=== PATIENT | female | born 1960 | race Caucasian/White ===

== ENCOUNTER 2023-11-02 15:58 | Emergency (ER) | payer OTHER, SELFPAY ==
[2023-11-02 16:10] VITALS: PULSE 71; RESP 18; TEMP 37; O2SAT 99; BMI 25.0
--- NOTE | 2023-11-02 16:48 | ED_ITS ---
HPI - Syncope General Date Seen: 11/02/23 Chief Complaint: Dizziness/Vertigo Stated Complaint: Feeling faint Time Seen by Provider: 11/02/23 16:09 Source: patient Mode of arrival: ambulatory Limitations: no limitations History of Present Illness HPI narrative: A 63-year-old female with no known active medical problems but admits to not seen a doctor in quite a while presenting to the emergency department for near syncopal episode. She states she was at work all day and doing well. She finished work and drove home at about 14:30 she had this feeling of faintness like she was about a passed out while driving her car. She pulled over the side of road and it passed. She still was not feeling completely back to normal so 1 to her brother's house which was only a couple blocks away and she laid down. Symptoms seemed to resolve at that point. She also states for the past several months she has been having intermittent episodes of dizziness. She states the dizziness seems to get worse with movement. Symptoms resolved when she lays down. She is currently asymptomatic. She describes the dizziness episodes as feeling like she is spinning. States this caused her to fall onto a cactus was she was in [place] in September. Has had issues with motion sickness as come and gone throughout the years. Denies fevers, chills, chest pain, shortness of breath, weakness, numbness, headache, vision changes, abdominal pain, diarrhea. She does states she has a primary care appointment scheduled for this upcoming Tuesday. Related Data Previous Rx's Medication Instructions Recorded meclizine 25 mg tablet 25 mg PO QID #20 tabs 11/02/23 Allergies Allergy/AdvReac Type Severity Reaction Status Date / Time No Known Drug Allergies Allergy Verified 11/02/23 16:09 Review of Systems Status of ROS: Reports: 10 or more systems reviewed and unremarkable except as noted in History and below [facility] Social History Smoking Status: Former smoker What tobacco products do you use: cigarettes Do you use any of these nicotine containing products: None Second hand tobacco smoke exposure: No How often do you have a drink containing alcohol: monthly or less How many standard drinks containing alcohol do you have on a typical day: 1 or 2 How often do you have six or more drinks on one occasion: Never AUDIT-C Alcohol total score: 1 Non-prescribed substance use: denies use service: No Exam Narrative: Exam Narrative: Const: Well-nourished, Well-developed, in no distress Eyes: PERRL, no conjunctival injection, and symmetrical lids HENT: Atraumatic external nose and ears. Moist mucous membranes. Neck: Symmetric, trachea midline, No thyromegaly. CVS: RRR, No murmurs or gallops. Peripheral pulses 2+ and equal in all extremities RESP: Unlabored respiratory effort. Clear to auscultation bilaterally. GI: Nontender/Nondistended, No rebound or guarding. MSK:Extremities w/o deformity, Normal Active ROM Skin: Warm, Dry. No rashes or lesions. Neuro: Normal Muscle tone, No focal neurological deficits. Psych: Awake, Alert, & Oriented x3. Appropriate mood and affect. Const: Vital Signs, click to edit/add: Vital Signs - 24 hr 11/02/23 16:10 11/02/23 19:07 Temperature 98.6 F Pulse Rate [Pulse Oximeter] 71 Pulse Rate [orthos tatic lying] 66 Pulse Rate [orthos tatic sitting] 75 Pulse Rate [orthos tatic standing] 71 Respiratory Rate 18 Blood Pressure [or thostatic lying] 135/75 Blood Pressure [or thostatic sitting] 139/80 Blood Pressure [or thostatic standing ] 135/84 Pulse Oximetry 99 Oxygen Delivery Me thod Room Air Course Vital Signs Vital signs: Initial Vital Signs Temperature 98.6 F 11/02/23 16:10 Temperature Source Temporal Artery Scan 11/02/23 16:10 Pulse Rate 71 11/02/23 16:10 Pulse Rhythm Regular 11/02/23 16:10 Respiratory Rate 18 11/02/23 16:10 Blood Pressure Position Supine 11/02/23 16:10 Pulse Oximetry 99 11/02/23 16:10 Oxygen Delivery Method Room Air 11/02/23 16:10 Vital Signs Temperature 98.6 F 11/02/23 16:10 Pulse Rate 71 11/02/23 16:10 Respiratory Rate 18 11/02/23 16:10 Pulse Oximetry 99 11/02/23 16:10 Oxygen Delivery Method Room Air 11/02/23 16:10 Temperature 98.6 F 11/02/23 16:10 Pulse Rate 66 11/02/23 19:07 Respiratory Rate 18 11/02/23 16:10 Blood Pressure 135/75 11/02/23 19:07 Pulse Oximetry 99 11/02/23 16:10 Oxygen Delivery Method Room Air 11/02/23 16:10 MDM - Syncope MDM Narrative Medical decision making narrative: Patient is a 63-year-old female presenting for it sounds like a near syncopal episode. Has not had is year with syncope before and states she was not under any stress at the time it occurred. Her previous episodes she is describing some more like vertigo. As there intermittently related to movement they seem very unlikely related to a stroke. Do not believe head imaging is necessary. I do not think further workup of the intermittent vertigo is necessary brother will workup for near syncope. Will do a BMP, CBC, magnesium, urinalysis, troponin, EKG. Will also do orthostatic blood pressures. Orthostatic blood pressures were within normal limits. Her lab work all returned showing no concerning findings. Repeat troponin showed no concerning findings EKG showed no concerning findings. We do not see signs of an arrhythmia that may have caused her episode of near syncope. Do not believe imaging will help with the diagnosis at this time. She has been asymptomatic since she has got your other than the occasional dizziness she has been having issues with for several months now. I offered her meclizine which she does not want to take right now but will take a prescription and will think about starting it. I informed her to keep her current follow-up appointment with her PCP on Tuesday. She is agreeable to this plan Lab Data Labs: Lab Results 11/02/23 11/02/23 Range/Units 16:47 17:55 WBC 6.63 (4.50-11.00) K/uL RBC 4.46 (4.00-5.20) m/uL Hgb 12.9 (12.0-16.0) gm/dL Hct 39.8 (33.0-51.0) % MCV 89 (80-100) fL MCH 29 (26-34) pg MCHC 32 (32-36) gm/dL RDW Coeff of Nirmala 13.4 (11.5-15.5) % Plt Count 204 (140-440) K/uL Neut % (Auto) 68.0 (42.0-72.0) % Lymph % (Auto) 21.9 (20-44) % [place] % (Auto) 7.4 (0.0-11.0) % Eos % (Auto) 2.0 (0.0-7.0) % Baso % (Auto) 0.5 (0.0-3.0) % Neut # (Auto) 4.52 (1.7-7.0) K/uL Lymph # (Auto) 1.45 (0.90-2.90) K/uL [place] # (Auto) 0.50 (0.00-0.90) K/UL Eos # (Auto) 0.13 (0.00-0.50) K/uL Baso # (Auto) 0.03 (0.00-0.30) K/uL Abs Immat Gran (auto) 0.01 (0.00-0.30) K/uL Imm/Tot Granulo (auto) 0.2 % Sodium 136 (135-149) mmol/L Potassium 4.1 (3.6-5.1) mmol/L Chloride 105 (96-114) mmol/L Carbon Dioxide 26 (20-32) mmol/L Anion Gap 5 L (7-15) mEq/L BUN 22 (7-30) mg/dL Creatinine 0.6 (0.5-1.5) mg/dL Estimated Creat Clear 53.16 Estimated GFR 102 ml/min Glucose 90 (60-115) mg/dL Calcium 9.3 (8.4-10.6) mg/dL Magnesium 2.0 (1.5-2.6) mg/dL POC Troponin I 0.00 L (0.01-0.04) ng/ml ECG Data Attestation: I personally reviewed and interpreted this ECG as follows: Prior ECG tracings: not available for review Interpretation: Normal sinus rhythm with a rate of 70 beats per minute, normal intervals, normal axis, no ST abnormalities. She does have some flat T-waves in the lateral leads but did not have any comparison. Discharge Plan Discharge Clinical Impression: Near syncope Patient Disposition: Home, Self-Care Condition: Stable Instructions: Near Syncope (ED) Additional Instructions: Make sure to keep your appointment with your primary care provider on Tuesday. Return to emergency department for new or worsening symptoms. If the dizziness seems to persist you can try using the prescribed meclizine. Prescriptions: New meclizine 25 mg tablet 25 mg PO QID Qty: 20 0RF Follow Up/Referrals: Tamika Schroeder DO [Primary Care Provider] - Stand Alone Forms: [facility] Info Instructions
[2023-11-02 18:09] LABS: Basophils Absolute Auto 0.03 K/uL (0.00-0.30); Basophils Percent Auto 0.5 % (0.0-3.0); Eosinophils Absolute Auto 0.13 K/uL (0.00-0.50); Hematocrit 39.8 % (33.0-51.0); Hemoglobin* 12.9 gm/dL (12.0-16.0); Immature Granulocytes Abs Auto 0.01 K/uL (0.00-0.30); Immature Granulocytes Pct Auto 0.2 %; Lymphocytes Absolute Auto 1.45 K/uL (0.90-2.90); Lymphocytes Percent Auto 21.9 % (20-44); Mean Corpuscular HGB Conc 32 gm/dL (32-36); Mean Corpuscular Hemoglobin 29 pg (26-34); Mean Corpuscular Volume 89 fL (80-100); Monocytes Percent Auto 7.4 % (0.0-11.0); Neutrophils Absolute Auto 4.52 K/uL (1.7-7.0); Platelet Count* 204 K/uL (140-440); RDW Coefficient of Variation % 13.4 % (11.5-15.5); Red Blood Count 4.46 m/uL (4.00-5.20); White Blood Count* 6.63 K/uL (4.50-11.00)
[2023-11-02 18:11] LABS: Slide Review Reflex No
[2023-11-02 18:19] LABS: Chloride* 105 mmol/L (96-114); Potassium* 4.1 mmol/L (3.6-5.1); Sodium* 136 mmol/L (135-149)
[2023-11-02 18:22] LABS: Anion Gap 5 mEq/L (7-15); Blood Urea Nitrogen* 22 mg/dL (7-30); Carbon Dioxide* 26 mmol/L (20-32); Creatinine* 0.6 mg/dL (0.5-1.5); Est. Creatinine Clearance* 53.16; Estimated Glomerular Filt Rate 102 ml/min
[2023-11-02 18:23] LABS: Calcium* 9.3 mg/dL (8.4-10.6); Glucose* 90 mg/dL (60-115)
[2023-11-02 19:07] VITALS: BP 135/75; BP 135/84; BP 139/80; PULSE 66; PULSE 71; PULSE 75
[2023-11-02 19:16] LABS: Appearance Urine Clear (Clear); Bilirubin Urine Negative (Negative); Blood Urine Negative (Negative); Color Urine Yellow (Yellow); Glucose Urine Negative (Negative); Ketones Urine Negative (Negative); Leukocyte Esterase Urine Negative (Negative); Nitrite Urine Negative (Negative); Protein Urine Negative (Negative); Urobilinogen Urine 0.2 (0.2-1.0)
[2023-11-02 19:53] LABS: Troponin, Point-of-Care* 0.01 ng/ml (0.01-0.04)
[2023-11-02 19:56] LABS: RBC Urine 0-2 (0-2); WBC Urine 0-2 (0-5)
== END 2023-11-02 20:03 | disposition home or self-care (01) ==
PROVIDERS: Emergency Provider Student in an Organized Health Care Education/Training Program; PCP Family Medicine
DX: R55 Syncope and collapse (principal)
CPT/HCPCS: 36415; 80048; 81001; 83735; 84484; 85025; 93005; 99283; 99284

== ENCOUNTER 2023-11-07 09:24 | Emergency (ER) | payer OTHER, SELFPAY ==
[2023-11-07 09:31] VITALS: BP 148/93; PULSE 111; RESP 18; TEMP 36.6; O2SAT 100; BMI 24.6
--- NOTE | 2023-11-07 10:24 | ED_ITS ---
HPI - Arrhythmia/Palpitations General Time Seen by Provider: 10:24 Date Seen: 11/07/23 Chief Complaint: Arrhythmia/Palpitations Stated Complaint: heart problems Time Seen by Provider: 11/07/23 10:24 Source: patient and RN notes reviewed Mode of arrival: ambulatory Limitations: no limitations History of Present Illness HPI narrative: Delia is a very pleasant 63-year-old female with recent history of near syncope and chronic intermittent dizziness for about 5 years who comes to the emergency room after an episode of rapid and strong heartbeat at home. Patient was noted to be following up with her primary clinic today and seeing Dr. Ortega but had a 10 minute episode of rapid heart rate that was pounding her chest. It was not associated with syncope or chest pain or shortness of breath but clearly very scary. She return to the emergency room for this reason. At this time her heart rate is normal and she has had resolution of her symptoms when I see her. Delia describes worries regarding an aneurysm or stroke as she states that she has also had intermittent lightheadedness for about 5 years. She notes that it seems to be better when she is working or concentrating on something. It does happen when she stands up. It does not appear to be vertigo but rather more of a lightheadedness. She states that she was climbing in the mountains in [place] 2 months ago and actually became lightheaded and she stumbled into a cactus. She denies chest pain or shortness of breath with this. She has not had DVT or PE in the past and has no calf tenderness or lower extremity edema. Patient denies fever chills or recent illness. She does undergo manager managed care for her neck and states she feels better after that. She did have manager managed care last week and did have what I believe is a high velocity correction. However, she did not have worsening dizziness after that, loss of vision or headache. Related Data Previous Rx's Medication Instructions Recorded meclizine 25 mg tablet 25 mg PO QID #20 tabs 11/02/23 Allergies Allergy/AdvReac Type Severity Reaction Status Date / Time No Known Drug Allergies Allergy Verified 11/02/23 16:09 Review of Systems Status of ROS: Reports: 10 or more systems reviewed and unremarkable except as noted in History and below PFSH PFSH Social History Smoking Status: Former smoker What tobacco products do you use: cigarettes Smoking quit date/years: >15 years ago Do you use any of these nicotine containing products: None Second hand tobacco smoke exposure: No How often do you have a drink containing alcohol: monthly or less How many standard drinks containing alcohol do you have on a typical day: 1 or 2 How often do you have six or more drinks on one occasion: Never AUDIT-C Alcohol total score: 1 Non-prescribed substance use: denies use service: No Exam Narrative: Exam Narrative: Alert and oriented. Very pleasant woman mentating normally in no acute distress. EOM is full. Pupils are equal round reactive. TMs bilaterally without erythema. No retraction. Face symmetrical with eyebrow raise smile normal. Tongue is midline. Palate rises symmetrically. Moving all extremities. Heart with regular rate and rhythm. Appears that heart rate initially 111 that is now in the 80s with my exam. Lungs are clear bilaterally. Lower extremities without edema. Homans sign negative. Moving all extremities. Const: Vital Signs, click to edit/add: Vital Signs - 24 hr 11/07/23 09:31 11/07/23 10:52 11/07/23 12:00 Temperature 97.8 F Pulse Rate [Right Pulse Oximeter] 111 H 71 Respiratory Rate 18 16 Blood Pressure [Ri ght Upper Arm] 148/93 H 137/75 Blood Pressure [or thostatic lying Ri ght Arm] 131/81 Blood Pressure [or thostatic sitting Right Arm] 138/82 Blood Pressure [or thostatic standing Right Arm] 132/81 Pulse Oximetry 100 Oxygen Delivery Me thod Room Air Documenting provider has reviewed patient's vital signs: yes Course Course ED Course: Differential diagnosis includes but is not limited to cardiac arrhythmia, orthostatic hypotension, anxiety, inner ear dysfunction. At this time Delia presents now with normal heart rate status post approximately 10 minutes of ongoing rapid and strong heartbeat in her chest. She did not pass out. She reports near syncopal episode but not full syncope 5 days ago. I would like to repeat her EKG and troponins as well as are electrolytes to include magnesium vitamin-D as well as TSH. She is worried about the possibility of a stroke or aneurysm but I do not note a neurological deficit and her lightheadedness is been ongoing for about 5 years. I think we should concentrate on cardiac rule out at this time. Will also give L of fluid. certified pest control technician also ordered. Reevaluation(s) Reevaluation #1: Patient's initial troponin and EKG reassuring. EKG unchanged from previous. Vital Signs Vital signs: Initial Vital Signs Temperature 97.8 F 11/07/23 09:31 Temperature Source Temporal Artery Scan 11/07/23 09:31 Pulse Rate 111 H 11/07/23 09:31 Respiratory Rate 18 11/07/23 09:31 Blood Pressure 148/93 H 11/07/23 09:31 Blood Pressure Mean 111 H 11/07/23 09:31 Blood Pressure Position Sitting 11/07/23 09:31 Pulse Oximetry 100 11/07/23 09:31 Oxygen Delivery Method Room Air 11/07/23 09:31 Vital Signs Temperature 97.8 F 11/07/23 09:31 Pulse Rate 111 H 11/07/23 09:31 Respiratory Rate 18 11/07/23 09:31 Blood Pressure 148/93 H 11/07/23 09:31 Pulse Oximetry 100 11/07/23 09:31 Oxygen Delivery Method Room Air 11/07/23 09:31 Temperature 97.8 F 11/07/23 09:31 Pulse Rate 71 11/07/23 12:00 Respiratory Rate 16 11/07/23 12:00 Blood Pressure 137/75 11/07/23 12:00 Pulse Oximetry 100 11/07/23 09:31 Oxygen Delivery Method Room Air 11/07/23 09:31 Medications Administered Medications: Discontinued Medications Generic Name Dose Route Start Last Admin Trade Name Freq PRN Reason Stop Dose Admin Sodium Chloride 1,000 mls @ 1,000 mls/hr 11/07/23 10:50 11/07/23 13:00 0.9 % Sodium Chloride 1000 Ml IV 11/07/23 11:49 Infused .Q1H JESSIE Infusion MDM - Arrhythmia/Palpitations MDM Narrative Medical decision making narrative: 1. Subjective tachycardia -this resolved by the time I saw patient but she was tachycardic at 111 when she initially arrived. She did not take her pulse when this happened at home. During her stay in the emergency room no evidence of arrhythmia or tachycardia noted on the organizational development director. She had a negative D- dimer and thus I do not think we are dealing with an aortic dissection or PE causing symptoms. In addition troponin was negative and EKG showed no evidence of ischemia and thus I do not think this was an acute coronary event. Patient had previously been on a detox for the liver which included multiple vitamins and herbal supplements. Also included green tea. However, she stopped taking that a week ago. We are unable to add ranges stress test here in the emergency room for tomorrow but I did talk to Joyce and they will be talking her to her this evening. The plan is to get her scheduled for a stress echo and a AUTOMATION DESIGN ENGINEER PATCH SUCH THE [employer]. She should then follow-up with Cardiology. 2. Intermittent lightheadedness -lightheadedness seems to be worse upon arising. Seems to be improved when she is working. At this time no neurological defici ts. She may need to undergo MRI based on neurology assessment. No evidence of vertigo today. 3. Elevated LFT-very mild. LFTs were not done at previous visit and so I do not have comparison. This may be related to recent supplements but I cannot be sure sure. Recommend recheck with primary MD. 4. Disposition-home at this time. Return for worsening symptoms and as needed. Medical Records Attestation: I reviewed the patient's medical records. Lab Data Attestation: I reviewed the patient's lab results. Labs: Lab Results 11/07/23 11/07/23 Range/Units 11:45 13:15 WBC 5.36 (4.50-11.00) K/uL RBC 5.06 (4.00-5.20) m/uL Hgb 14.5 (12.0-16.0) gm/dL Hct 45.2 (33.0-51.0) % MCV 89 (80-100) fL MCH 29 (26-34) pg MCHC 32 (32-36) gm/dL RDW Coeff of Nirmala 13.5 (11.5-15.5) % Plt Count 223 (140-440) K/uL Neut % (Auto) 65.8 (42.0-72.0) % Lymph % (Auto) 25.4 (20-44) % [place] % (Auto) 6.3 (0.0-11.0) % Eos % (Auto) 2.1 (0.0-7.0) % Baso % (Auto) 0.2 (0.0-3.0) % Neut # (Auto) 3.53 (1.7-7.0) K/uL Lymph # (Auto) 1.36 (0.90-2.90) K/uL [place] # (Auto) 0.30 (0.00-0.90) K/UL Eos # (Auto) 0.11 (0.00-0.50) K/uL Baso # (Auto) 0.01 (0.00-0.30) K/uL Abs Immat Gran (auto) 0.01 (0.00-0.30) K/uL Imm/Tot Granulo (auto) 0.2 % D-Dimer Quant (PE/DVT) 0.32 (0.00-0.50) ug/ml Sodium 139 (135-149) mmol/L Potassium 4.1 (3.6-5.1) mmol/L Chloride 107 (96-114) mmol/L Carbon Dioxide 25 (20-32) mmol/L Anion Gap 7 (7-15) mEq/L BUN 16 (7-30) mg/dL Creatinine 0.6 (0.5-1.5) mg/dL Estimated Creat Clear 53.16 Estimated GFR 102 ml/min Glucose 90 (60-115) mg/dL Calcium 9.9 (8.4-10.6) mg/dL Magnesium 2.1 (1.5-2.6) mg/dL Total Bilirubin 0.3 (0.1-1.5) mg/dL AST 65 H (12-35) U/L ALT 72 H (4-35) U/L Alkaline Phosphatase 99 (40-150) U/L C-Reactive Protein < 0.5 L (0.5-1.0) mg/dL Total Protein 9.3 H (6.0-8.3) g/dL Albumin 4.8 (3.3-5.0) g/dL 25-OH Vitamin D Total 67 (30-80) ng/mL TSH 2.920 (0.270-4.200) uIU/mL POC Troponin I 0.02 (0.01-0.04) ng/ml ECG Data Attestation: I personally reviewed and interpreted this ECG as follows: ECG interpretation date: 11/07/23 Interpretation: EKG by my read sinus rhythm at a rate of 79. Q-wave noted in V1 questionable V2. However I do not note any acute ST or T-wave changes. This is unchanged from previous EKG. QT interval NH interval within normal limits. EKG 2. By my read shows sinus rhythm at a rate of 71. Again, unchanged from previous EKG with no acute ST or T-wave changes. Discharge Plan Discharge Clinical Impression: Episodic lightheadedness, Tachycardia Patient Disposition: Home, Self-Care Condition: Improved Additional Instructions: Await phone call from the [facility] this afternoon. I have asked them to set you up with aZio patch heart monitor as well as a stress echo. Today we had no evidence of an arrhythmia, heart attack or other issue such as electrolyte imbalance on our tests. Avoid driving at this time. However, if you want to walk, work that is fine. Avoid significantly intense activity until your stress echo and cardiac consultation is done. Return to the emergency room as needed. Prescriptions: No Action meclizine 25 mg tablet 25 mg PO QID Qty: 20 0RF Follow Up/Referrals: Tamika Schroeder DO [Primary Care Provider] - Stand Alone Forms: [employer] Info Instructions
[2023-11-07 10:52] VITALS: BP 131/81; BP 132/81; BP 138/82
[2023-11-07] MEDS: 0.9 % SODIUM CHLORIDE 1000 ml 1,000 ML IV (11:54)
[2023-11-07 12:00] VITALS: BP 137/75; PULSE 71; RESP 16
[2023-11-07 12:04] LABS: Basophils Absolute Auto 0.01 K/uL (0.00-0.30); Basophils Percent Auto 0.2 % (0.0-3.0); Eosinophils Absolute Auto 0.11 K/uL (0.00-0.50); Eosinophils Percent Auto 2.1 % (0.0-7.0); Hematocrit 45.2 % (33.0-51.0); Hemoglobin* 14.5 gm/dL (12.0-16.0); Immature Granulocytes Abs Auto 0.01 K/uL (0.00-0.30); Immature Granulocytes Pct Auto 0.2 %; Lymphocytes Absolute Auto 1.36 K/uL (0.90-2.90); Lymphocytes Percent Auto 25.4 % (20-44); Mean Corpuscular HGB Conc 32 gm/dL (32-36); Mean Corpuscular Hemoglobin 29 pg (26-34); Mean Corpuscular Volume 89 fL (80-100); Monocytes Percent Auto 6.3 % (0.0-11.0); Neutrophils Absolute Auto 3.53 K/uL (1.7-7.0); Neutrophils Percent Auto 65.8 % (42.0-72.0); Platelet Count* 223 K/uL (140-440); RDW Coefficient of Variation % 13.5 % (11.5-15.5); Red Blood Count 5.06 m/uL (4.00-5.20); White Blood Count* 5.36 K/uL (4.50-11.00)
[2023-11-07 12:09] LABS: Slide Review Reflex No
[2023-11-07 12:23] LABS: Albumin* 4.8 g/dL (3.3-5.0); Chloride* 107 mmol/L (96-114)
[2023-11-07 12:24] LABS: Potassium* 4.1 mmol/L (3.6-5.1); Sodium* 139 mmol/L (135-149)
[2023-11-07 12:25] LABS: D Dimer Quantitative* 0.32 ug/ml (0.00-0.50)
[2023-11-07 12:26] LABS: Bilirubin Total* 0.3 mg/dL (0.1-1.5); Creatinine* 0.6 mg/dL (0.5-1.5); Est. Creatinine Clearance* 53.16; Estimated Glomerular Filt Rate 102 ml/min
[2023-11-07 12:27] LABS: Alanine Aminotransferase* 72 U/L (4-35); Alkaline Phosphatase* 99 U/L (40-150); Anion Gap 7 mEq/L (7-15); Aspartate Amino Transferase* 65 U/L (12-35); Blood Urea Nitrogen* 16 mg/dL (7-30); Calcium* 9.9 mg/dL (8.4-10.6); Carbon Dioxide* 25 mmol/L (20-32); Glucose* 90 mg/dL (60-115); Total Protein* 9.3 g/dL (6.0-8.3)
[2023-11-07 12:28] LABS: Magnesium* 2.1 mg/dL (1.5-2.6)
[2023-11-07 12:32] LABS: C Reactive Protein* < 0.5 mg/dL (0.5-1.0)
[2023-11-07 12:43] LABS: Vitamin D 25 Hydroxy* 67 ng/mL (30-80)
[2023-11-07 13:57] LABS: Troponin, Point-of-Care* 0.02 ng/ml (0.01-0.04)
== END 2023-11-07 15:04 | disposition home or self-care (01) ==
PROVIDERS: Emergency Provider Family Medicine; PCP Family Medicine
DX: R42 Dizziness and giddiness (principal); R00.0 Tachycardia, unspecified
CPT/HCPCS: 36415; 80053; 82306; 83735; 84443; 84484; 85025; 85379; 86140; 93005; 96360; 99284; J7030

== ENCOUNTER 2023-11-25 08:45 | Outpatient (RCR) | payer OTHER, SELFPAY | END 2024-02-07 11:35 | disposition home or self-care (01) | PROVIDERS: PCP Family Medicine; Visit Provider Student in an Organized Health Care Education/Training Program | DX: R42 Dizziness and giddiness (principal); Z51.89 Encounter for other specified aftercare | CPT/HCPCS: 97140; 97161 ==